=== PATIENT | female | born 1995 | race Caucasian/White ===

== ENCOUNTER 2017-05-12 22:37 | Emergency (ER) | payer OTHER ==
[2017-05-12 23:54] LABS: ABSOLUTE BASOPHILS # (AUTO) 0.1 10^3/uL (0.0-0.2); ABSOLUTE EOSINOPHILS # (AUTO) 0.3 10^3/uL (0.0-0.6); ABSOLUTE LYMPHOCYTES (AUTO) 3.8 10^3/uL (0.5-4.7); ABSOLUTE MONOCYTES (AUTO) 0.8 10^3/uL (0.1-1.4); ABSOLUTE NEUT (AUTO) 5.2 10^3/uL (1.7-8.2); BASOPHILS % (AUTO) 0.8 % (0-2); EOSINOPHILS % (AUTO) 2.9 % (0-6); HEMATOCRIT 40.4 % (36.0-47.0); HEMOGLOBIN 13.1 g/dL (12.0-15.5); HGB HCT DIFFERENCE -1.1; LYMPHOCYTES % (AUTO) 37.4 % (13-45); MEAN CORPUSCULAR HEMOGLOBIN 27.4 pg (27.0-33.4); MEAN CORPUSCULAR HGB CONC 32.4 g/dL (32.0-36.0); MEAN CORPUSCULAR VOLUME 85 fl (80-97); MONOCYTES % (AUTO) 8.3 % (3-13); RED BLOOD COUNT 4.78 10^6/uL (3.72-5.28); RED CELL DISTRIBUTION WIDTH 14.5 % (11.5-14.0); SEGMENTED NEUTROPHILS % (AUTO) 50.6 % (42-78); WHITE BLOOD COUNT 10.3 10^3/uL (4.0-10.5)
[2017-05-12 23:59] LABS: ALANINE AMINOTRANSFERASE 32 U/L (9-52); ALBUMIN 4.2 g/dL (3.5-5.0); ALKALINE PHOSPHATASE 81 U/L (38-126); ANION GAP 14 (5-19); ASPARTATE AMINO TRANSFERASE 17 U/L (14-36); BILIRUBIN,DIRECT 0.3 mg/dL (0.0-0.4); BILIRUBIN,TOTAL 0.3 mg/dL (0.2-1.3); BLOOD UREA NITROGEN 15 mg/dL (7-20); CALCIUM 9.5 mg/dL (8.4-10.2); CARBON DIOXIDE 24 mmol/L (22-30); CHLORIDE 105 mmol/L (98-107); CREATININE RESULT 0.78 mg/dL (0.52-1.25); GLUCOSE 128 mg/dL (75-110); LIPASE 83.2 U/L (23-300); POTASSIUM 4.1 mmol/L (3.6-5.0); SODIUM 142.6 mmol/L (137-145); TOTAL PROTEIN 7.5 g/dL (6.3-8.2)
[2017-05-13 02:04] LABS: AMORPHOUS SEDIMENT,URINE 1+ /HPF; APPEARANCE,URINE TURBID; BILIRUBIN,URINE NEGATIVE (NEGATIVE); GLUCOSE, URINE NEGATIVE (NEGATIVE); KETONES,URINE NEGATIVE (NEGATIVE); LEUKOCYTE ESTERASE,URINE NEGATIVE (NEGATIVE); NITRITE,URINE NEGATIVE (NEGATIVE); PROTEIN,URINE NEGATIVE (NEGATIVE); URINE SPECIFIC GRAVITY 1.018; UROBILINOGEN,URINE NEGATIVE mg/dL (<2.0)
--- NOTE | 2017-05-13 02:39 | ER Document Report ---
ED GI/ - General Chief Complaint: Abdominal Pain Stated Complaint: LEFT ABDOMINAL PAIN Time Seen by Provider: 05/13/17 01:22 Mode of Arrival: Ambulatory Information source: Patient Notes: 21-year-old female presents to ED for complaint of abdominal pain. States she went to her primary doctor she thought she could have gallbladder or appendicitis. States she has had pain on and off for 2 weeks. Denies any nausea vomiting or fever. Patient is on the left upper and lower abdomen. TRAVEL OUTSIDE OF THE [place] IN LAST 30 DAYS: No - HPI Patient complains to provider of: Abdominal pain. No: Dysuria, Vomiting Onset: Other - 2 weeks Timing/Duration: Intermittent Quality of pain: Sharp Severity at maximum: Moderate Severity in ED: Moderate Pain Level: 4 Location: LUQ, LLQ Vaginal bleeding (Compared to normal period): None Associated symptoms: denies: Nausea, Urinary hesitancy, Urinary frequency, Urinary retention, Urinary urgency, Vomiting Exacerbated by: Movement Relieved by: Denies Similar symptoms previously: Yes Recently seen / treated by doctor: Yes - Related Data Allergies/Adverse Reactions: sulfamethoxazole [From Septra] Allergy (Verified 05/12/17 22:47) trimethoprim [From Septra] Allergy (Verified 05/12/17 22:47) Past Medical History - General Information source: Patient - Social History Smoking Status: Never Smoker Cigarette use (# per day): No Chew tobacco use (# tins/day): No Smoking Education Provided: No Frequency of alcohol use: None Drug Abuse: None Occupation: [employer] Lives with: Family Family History: Other - adopted Patient has suicidal ideation: No Patient has homicidal ideation: No - Past Medical History Cardiac Medical History: Reports: Hx Hypercholesterolemia Pulmonary Medical History: Reports: None EENT Medical History: Reports: None Neurological Medical History: Reports: None Endocrine Medical History: Reports: Other - hypoglycemia Renal/ Medical History: Reports: None Malignancy Medical History: Reports: None GI Medical History: Reports: None Musculoskeltal Medical History: Reports Hx Musculoskeletal Trauma Skin Medical History: Reports None Psychiatric Medical History: Reports: None Traumatic Medical History: Reports: Hx Fractures - arm Infectious Medical History: Reports: None Surgical Hx: Negative Past Surgical History: Reports: None - Immunizations Immunizations up to date: Yes Hx Diphtheria, Pertussis, Tetanus Vaccination: Yes Review of Systems - Review of Systems Constitutional: No symptoms reported. denies: Fever, Recent illness EENT: No symptoms reported Cardiovascular: No symptoms reported Respiratory: No symptoms reported Gastrointestinal: Abdominal pain. denies: Diarrhea, Nausea, Vomiting Genitourinary: No symptoms reported Female Genitourinary: No symptoms reported Musculoskeletal: No symptoms reported Skin: No symptoms reported Hematologic/Lymphatic: No symptoms reported Neurological/Psychological: No symptoms reported -: Yes All other systems reviewed and negative Physical Exam - Vital signs Vitals: Temp Pulse Resp BP Pulse Ox 97.8 F 77 18 132/81 H 99 05/12/17 22:46 05/12/17 22:46 05/12/17 22:46 05/12/17 22:46 05/12/17 22:46 Interpretation: Normal - General General appearance: Appears well, Alert - HEENT Head: Normocephalic, Atraumatic Eyes: Normal Pupils: PERRL - Respiratory Respiratory status: No respiratory distress Chest status: Nontender Breath sounds: Normal Chest palpation: Normal - Cardiovascular Rhythm: Regular Heart sounds: Normal auscultation Murmur: No - Abdominal Inspection: Normal Distension: No distension Bowel sounds: Normal Tenderness: Tender - left upper and lower abdomen Organomegaly: No organomegaly - Back Back: Normal, Nontender - Extremities General upper extremity: Normal inspection, Nontender, Normal color, Normal ROM , Normal temperature General lower extremity: Normal inspection, Nontender, Normal color, Normal ROM , Normal temperature, Normal weight bearing. No: Meme's sign - Neurological Neuro grossly intact: Yes Cognition: Normal Orientation: AAOx4 [place] Coma Scale Eye Opening: Spontaneous [place] Coma Scale Verbal: Oriented [place] Coma Scale Motor: Obeys Commands [place] Coma Scale Total: 15 Speech: Normal Motor strength normal: LUE, RUE, LLE, RLE Sensory: Normal - Psychological Associated symptoms: Normal affect, Normal mood - Skin Skin Temperature: Warm Skin Moisture: Dry Skin Color: Normal Course - Re-evaluation Re-evalutation: 05/13/17 03:41 discussed labs with patient and family and encouraged to follow up with primary md. - Vital Signs Vital signs: Temp Pulse Resp BP Pulse Ox 97.8 F 78 18 116/74 99 05/12/17 22:46 05/13/17 02:40 05/13/17 02:40 05/13/17 02:40 05/13/17 02:40 - Laboratory Result Diagrams: 05/12/17 23:25 05/12/17 23:25 Laboratory results interpreted by me: 05/12/17 05/12/17 23:25 23:25 RDW 14.5 H Glucose 128 H Discharge - Discharge Clinical Impression: Abdominal pain Qualifiers: Abdominal location: upper abdomen, unspecified Qualified Code(s): R10.10 - Upper abdominal pain, unspecified Condition: Stable Disposition: HOME, SELF-CARE Additional Instructions: ABDOMINAL PAIN: There are many causes of abdominal pain. Pain can mean a serious problem requiring surgery (such as appendicitis). It can also be an innocent problem that goes away on its own (such as a viral infection). Often, time must pass to determine the cause of pain. The physician does not feel that hospitalization is necessary, at present. Things may change within the next 24 hours. Call the doctor or come back for re- examination if any problems occur, such as: (1) Pain that becomes more severe, steady, or becomes concentrated in one specific area. Also, pain that is more severe with movement or coughing. (2) Vomiting that persists or becomes more frequent. (3) Blood in the vomitus, urine, or bowel movements. Blood in the stool may have a tarry or black appearance. (4) Shaking chills or fever greater than 100 degrees F. (5) The abdomen becomes more distended or swollen. (6) Bowel movements cease. (7) Failure to improve as expected. NORMAL EXAM AND WORKUP: At this time, your examination and workup show no significant abnormality. No significant abnormal physical findings are noted. All laboratory, EKG, and imaging (x-ray, CT scans, ultrasound) studies that were ordered show no significant abnormality. Although your examination and all studies that were ordered showed no significant abnormal finding, there are no examinations and no studies that are 100% accurate. There is always the possibility that some abnormality could exist and not be detected with physical examination or within the limits and capabilities of laboratory and other studies. You should return or follow up as you were instructed on your visit today for further evaluation if your symptoms do not resolve. Given you a copy of your labs to follow-up with your primary doctor. FOLLOW-UP CARE: If you have been referred to a physician for follow-up care, call the physician s office for an appointment as you were instructed or within the next two days. If you experience worsening or a significant change in your symptoms, notify the physician immediately or return to the Emergency Department at any time for re-evaluation. Forms: Elevated Blood Pressure Referrals: OSCAR KIM MD [Primary Care Provider] - Follow up as needed
[2017-05-13 02:42] VITALS: BP 116/74
== END 2017-05-13 02:41 | disposition home or self-care (01) ==
LOC: ER 22:37
DX: R10.12 Left upper quadrant pain (principal); R10.32 Left lower quadrant pain; Z88.1 Allergy status to other antibiotic agents
CPT/HCPCS: 36415; 80053; 81001; 83690; 84703; 85025; 99284

== ENCOUNTER 2019-04-28 08:53 | Emergency (ER) | payer OTHER ==
[2019-04-28 08:59] VITALS: BP 118/79
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
== END 2019-04-28 09:54 | disposition home or self-care (01) ==
LOC: ER 08:53
DX: M79.601 Pain in right arm (principal); F17.200 Nicotine dependence, unspecified, uncomplicated; E78.00 Pure hypercholesterolemia, unspecified; E11.9 Type 2 diabetes mellitus without complications
CPT/HCPCS: 99283

== ENCOUNTER 2019-05-05 20:49 | Emergency (ER) | payer OTHER ==
[2019-05-05 21:27] VITALS: BP 114/78
--- NOTE | 2019-05-05 22:51 | ER Document Report ---
ED Medical Screen (RME) - General Chief Complaint: OB Problem (<20wks) Stated Complaint: POSSIBLE BLEEDING Time Seen by Provider: 05/05/19 22:48 Primary Care Provider: OSCAR KIM MD [Primary Care Provider] - Follow up as needed Notes: Patient is a 23-year-old G1, P0 female who presents emergency department with vaginal bleeding, headache, and lightheadedness. She has irregular periods and she does not know when her last actual menstrual cycle was. She has been on fertilization medication and has had a positive home test. She started having spotting around 1900 and then had some heavy bleeding shortly after. She states that she did have some cramping and felt like she almost was going to pass out. Since then, she states the bleeding has stopped. She does have a past medical history of PCOS and diabetes. She is followed by [facility] for her fertilization. She states that she is also nauseous. Exam: Tender mid lower abdomen. I have greeted and performed a rapid initial assessment of this patient. A comprehensive ED assessment and evaluation of the patient, analysis of test results and completion of medical decision making process will be conducted by an additional ED providers. TRAVEL OUTSIDE OF THE [place] IN LAST 30 DAYS: No - Related Data Allergies/Adverse Reactions: sulfamethoxazole [From ] Allergy (Verified 04/28/19 08:56) trimethoprim [From Julra] Allergy (Verified 04/28/19 08:56) Past Medical History - Past Medical History Cardiac Medical History: Reports: Hx Hypercholesterolemia Endocrine Medical History: Reports: Hx Diabetes Mellitus Type 2 Renal/ Medical History: Denies: Hx Peritoneal Dialysis Musculoskeltal Medical History: Reports Hx Musculoskeletal Trauma Traumatic Medical History: Reports: Hx Fractures - arm - Immunizations Immunizations up to date: Yes Hx Diphtheria, Pertussis, Tetanus Vaccination: Yes Physical Exam - Vital signs Vitals: Temp Pulse Resp BP Pulse Ox 98.0 F 81 18 114/78 98 05/05/19 21:25 05/05/19 21:25 05/05/19 21:25 05/05/19 21:25 05/05/19 21:25 Course - Vital Signs Vital signs: Temp Pulse Resp BP Pulse Ox 98.0 F 81 18 114/78 98 05/05/19 21:25 05/05/19 21:25 05/05/19 21:25 05/05/19 21:25 05/05/19 21:25 Doctor's Discharge - Discharge Referrals: OSCAR KIM MD [Primary Care Provider] - Follow up as needed
[2019-05-05 23:36] LABS: HEMATOCRIT 37.4 % (36.0-47.0); HEMOGLOBIN 12.3 g/dL (12.0-15.5); MEAN CORPUSCULAR HEMOGLOBIN 26.6 pg (27.0-33.4); MEAN CORPUSCULAR HGB CONC 32.8 g/dL (32.0-36.0); MEAN CORPUSCULAR VOLUME 81 fl (80-97); PLATELET COUNT 223 10^3/uL (150-450); RED BLOOD COUNT 4.61 10^6/uL (3.72-5.28); RED CELL DISTRIBUTION WIDTH 15.8 % (11.5-14.0); WHITE BLOOD COUNT 8.3 10^3/uL (4.0-10.5)
[2019-05-05 23:55] LABS: ABSOLUTE MONOCYTES # (MANUAL) 0.7 10^3/uL (0.1-1.4); ABSOLUTE NEUTROPHILS# (MANUAL) 2.5 10^3/uL (1.7-8.2); BAND NEUTROPHILS % (MANUAL) 1 % (3-5); BASOPHILS % (MANUAL) 0 % (0-2); EOSINOPHILS % (MANUAL) 2 % (0-6); LYMPHOCYTES % (MANUAL) 60 % (13-45); MONOCYTES % (MANUAL) 8 % (3-13); SEGMENTED NEUTROPHILS % (MAN) 29 % (42-78); TOTAL CELLS COUNTED 100
[2019-05-05 23:56] LABS: ANISOCYTOSIS SLIGHT; PLATELET COMMENT ADEQUATE
--- NOTE | 2019-05-06 01:06 | RADIOLOGY REPORT (SQ) ---
CLINICAL DATA: 23-year-old female with vaginal bleeding and irregular periods, history of using fertility medications, polycystic ovary syndrome, dysfunctional bleeding, positive home test, negative hCG TECHNICAL DATA: Ultrasound imaging of the pelvis was performed endovaginally on 05/06/2019 at 12:38 AM. COMPARISONS: None FINDINGS: The uterus is normal in size, shape and echogenicity and measures 8.0 x 4.6 x 4.0 cm. The endometrial complex measures 0.8 cm in thickness. There is no endometrial fluid. The cervix measures 3.3 cm in length. Cervical nabothian cysts are noted. The right ovary measures 4.1 x 1.9 x 2.3 cm. The right ovary is normal in size, shape and echogenicity. Doppler imaging demonstrates normal pulsed and color Doppler signal. The left ovary measures 3.2 x 1.7 x 2.4 cm. The left ovary contains normal follicles. Doppler imaging demonstrates normal pulsed and color Doppler signal. There is no free fluid in the pelvis. The technologist noted that the examination was technically limited due to the patient's overall body habitus. IMPRESSION: Grossly normal pelvic ultrasound. No focal abnormalities are identified.
--- NOTE | 2019-05-06 01:28 | ER Document Report ---
ED General - General Chief Complaint: OB Problem (<20wks) Stated Complaint: POSSIBLE BLEEDING Time Seen by Provider: 05/05/19 22:48 Primary Care Provider: OSCAR KIM MD [Primary Care Provider] - Follow up as needed Mode of Arrival: Ambulatory Information source: Patient, [facility] Records Notes: Patient is a 23-year-old G1, P0 female who presents emergency department with vaginal bleeding, headache, and lightheadedness. She has irregular periods and she does not know when her last actual menstrual cycle was. She has been on fertilization medication (Clomid) and has had a positive home test. She started having spotting around 1900 and then had some heavy bleeding shortly after. She states that she did have some cramping and felt like she almost was going to pass out. Since then, she states the bleeding has stopped. She does have a past medical history of PCOS and pre-diabetes (not currently on medications). She is followed by [facility] for her fertilization. She states that she is also nauseous. Upon my exam patient is eating [employer]. TRAVEL OUTSIDE OF THE [place] IN LAST 30 DAYS: No - HPI Onset: This morning Onset/Duration: Gradual, Gone Quality of pain: Achy Severity: Mild Associated symptoms: Headache, Nausea. denies: Diarrhea, Fever, Vomiting Exacerbated by: Denies Relieved by: Denies Similar symptoms previously: No Recently seen / treated by doctor: No - Related Data Allergies/Adverse Reactions: sulfamethoxazole [From ] Allergy (Verified 04/28/19 08:56) trimethoprim [From ] Allergy (Verified 04/28/19 08:56) Past Medical History - General Information source: Patient - Social History Smoking Status: Unknown if Ever Smoked Frequency of alcohol use: None Drug Abuse: None Lives with: Spouse/Significant other Family History: Other - adopted Patient has suicidal ideation: No Patient has homicidal ideation: No - Past Medical History Cardiac Medical History: Reports: Hx Hypercholesterolemia Endocrine Medical History: Reports: Hx Diabetes Mellitus Type 2 Renal/ Medical History: Denies: Hx Peritoneal Dialysis Musculoskeletal Medical History: Reports Hx Musculoskeletal Trauma Traumatic Medical History: Reports: Hx Fractures - arm - Immunizations Immunizations up to date: Yes Hx Diphtheria, Pertussis, Tetanus Vaccination: Yes Review of Systems - Review of Systems Notes: REVIEW OF SYSTEMS: CONSTITUTIONAL : Denies fever, chills, or sweats. Denies recent illness. Denies weight loss, recent hospitalizations. EENT: Denies visual changes, eye pain. Denies sore throat, oral lesions, difficulty swallowing. CARDIOVASCULAR: Denies chest pain. Denies palpitations. Denies lower extremity edema. RESPIRATORY: Denies cough. Denies shortness of breath, wheezing. GASTROINTESTINAL: Denies abdominal pain or distention. Denies vomiting, or diarrhea. Denies blood in vomitus, stools, or per rectum. Denies black, tarry stools. Denies constipation. GENITOURINARY: Denies difficulty urinating, painful urination, frequency, blood in urine, or vaginal discharge. MUSCULOSKELETAL: Denies back or neck pain or stiffness. Denies joint pain or swelling. SKIN: Denies rash, lesions or sores. HEMATOLOGIC : Denies easy bruising or bleeding. LYMPHATIC: Denies swollen glands. NEUROLOGICAL: Denies confusion or altered mental status. Denies loss of consciousness. + dizziness or lightheadedness. Denies headache. Denies weakness or paralysis. Denies problems difficulty with ambulation, slurred speech. Denies sensory loss, numbness, or tingling. Denies seizures. PSYCHIATRIC: Denies anxiety or stress. Denies depression, suicidal ideation, or homicidal ideation. Denies visual or auditory hallucinations. Physical Exam - Vital signs Vitals: Temp Pulse Resp BP Pulse Ox 98.0 F 81 18 114/78 98 05/05/19 21:25 05/05/19 21:25 05/05/19 21:25 05/05/19 21:25 05/05/19 21:25 - Notes Notes: PHYSICAL EXAMINATION: GENERAL: Well-appearing, well-nourished and in no acute distress. HEAD: Atraumatic, normocephalic. EYES: Pupils equal round and reactive to light, extraocular movements intact, conjunctiva are normal. ENT: Nares patent, oropharynx clear without exudates. Moist mucous membranes. NECK: Normal range of motion, supple without lymphadenopathy LUNGS: Breath sounds clear to auscultation bilaterally and equal. No wheezes rales or rhonchi. HEART: Regular rate and rhythm without murmurs ABDOMEN: Soft, nontender, nondistended abdomen. No guarding, no rebound. No masses appreciated. Female : deferred Musculoskeletal: Normal range of motion, no pitting or edema. No cyanosis. NEUROLOGICAL: Cranial nerves grossly intact. Normal speech, normal gait. Normal sensory, motor exams PSYCH: Normal mood, normal affect. SKIN: Warm, Dry, normal turgor, no rashes or lesions noted. Course - Re-evaluation Re-evalutation: 05/06/19 23:18 Laboratory 05/05/19 05/05/19 05/05/19 23:15 23:15 23:15 WBC 8.3 RBC 4.61 Hgb 12.3 Hct 37.4 MCV 81 MCH 26.6 L MCHC 32.8 RDW 15.8 H Plt Count 223 Total Counted 100 Seg Neutrophils % Not Reportable Seg Neuts % (Manual) 29 L Band Neutrophils % 1 L Lymphocytes % Not Reportable Lymphocytes % (Manual) 60 H Monocytes % Not Reportable Monocytes % (Manual) 8 Eosinophils % Not Reportable Eosinophils % (Manual) 2 Basophils % Not Reportable Basophils % (Manual) 0 Absolute Neutrophils Not Reportable Abs Neuts (Manual) 2.5 Absolute Lymphocytes Not Reportable Abs Lymphs (Manual) 5.0 H Absolute Monocytes Not Reportable Abs Monocytes (Manual) 0.7 Absolute Eosinophils Not Reportable Absolute Eos (Manual) 0.2 Absolute Basophils Not Reportable Abs Basophils (Manual) 0.0 Platelet Comment ADEQUATE Anisocytosis SLIGHT Beta HCG, Quant < 2.39 Total Beta HCG NEGATIVE Blood Type A POSITIVE Rhogam Indicated RHOGAM NOT INDICATED Transvaginal US 05/05/19 22:51 IMPRESSION: Grossly normal pelvic ultrasound. No focal abnormalities are identified. Temp Pulse Resp BP Pulse Ox 98.0 F 81 18 114/78 98 05/05/19 21:25 05/05/19 21:25 05/05/19 21:25 05/05/19 21:25 05/05/19 21:25 Transvaginal US 05/05/19 22:51 IMPRESSION: Grossly normal pelvic ultrasound. No focal abnormalities are identified. 05/06/19 23:19 Patient is a 23-year-old G1, P0 female who presents emergency department with vaginal bleeding, headache, and lightheadedness. She has irregular periods and she does not know when her last actual menstrual cycle was. She has been on fertilization medication (Clomid) and has had a positive home test. She started having spotting around 1900 and then had some heavy bleeding shortly after. She states that she did have some cramping and felt like she almost was going to pass out. Since then, she states the bleeding has stopped. Vital signs are reviewed and within normal limits. Patient does not appear toxic, dehydrated or in any acute distress. She is eating sounds upon my exam. The first words out of the patient's mouth were "please tell me i advised patient that had a miscarriage". There is no evidence of . She has a normal transvaginal ultrasound and her hCG is negative. Advised to follow-up with her CLEAN OUT DRILLER HELPER. Patient was evaluated and treated as appropriate for the patient's presenting symptoms and complaint, with consideration of any critical or life threatening conditions that may be associated with their obtained history and exam as noted above. All results were discussed with patient and Her significant other was at the bedside. Patient provided the opportunity to ask questions, and express concerns. Patient was educated on treatments based on their presumed diagnosis as noted above. At this time we will discharge the patient with return precautions and follow-up recommendations. Verbal discharge instructions given a the bedside. Medication warnings reviewed. Patient is in agreement with this plan and has verbalized understanding of return precautions. After careful consideration I feel that that patient can be safely discharged from the emergency department, they were advised to followup with a primary care physician in 2-3 days. Dictation on this chart was performed using voice recognition software and may result in unintended grammatical, spelling, syntax or errors. Her significant other was at the bedside. - Vital Signs Vital signs: Temp Pulse Resp BP Pulse Ox 98.0 F 81 18 114/78 98 05/05/19 21:25 05/05/19 21:25 05/05/19 21:25 05/05/19 21:25 05/05/19 21:25 - Laboratory Result Diagrams: 05/05/19 23:15 Laboratory results interpreted by me: 05/05/19 23:15 MCH 26.6 L RDW 15.8 H Seg Neuts % (Manual) 29 L Band Neutrophils % 1 L Lymphocytes % (Manual) 60 H Abs Lymphs (Manual) 5.0 H - Diagnostic Test Radiology reviewed: Image reviewed, Reports reviewed Discharge - Discharge Clinical Impression: Vaginal bleeding Condition: Good Disposition: HOME, SELF-CARE Instructions: Dysfunctional Uterine Bleeding ([facility]), Vaginal Bleeding ([facility]) Additional Instructions: You are not . Your ultrasound is completely normal. Please follow-up with your CLEAN OUT DRILLER HELPER as needed. Referrals: OSCAR KIM MD [Primary Care Provider] - Follow up as needed
== END 2019-05-06 01:58 | disposition home or self-care (01) ==
LOC: ER 20:49
DX: O03.9 Complete or unspecified spontaneous abortion without complication (principal); O24.911 Unspecified diabetes mellitus in pregnancy, first trimester; O26.891 Other specified pregnancy related conditions, first trimester; R51 Headache; R42 Dizziness and giddiness; R11.0 Nausea; Z3A.00 Weeks of gestation of pregnancy not specified
CPT/HCPCS: 36415; 76830; 84702; 85025; 86900; 86901; 93976; 99284

== ENCOUNTER → 2020-05-16 | Outpatient (CLI) | payer OTHER ==
[2020-05-16 13:00] LABS: CRYPTOSPORIDIUM PARVUM AG NEGATIVE (NEGATIVE); GIARDIA LAMBLIA AG NEGATIVE (NEGATIVE)
== END ==
LOC: OD 11:13
PROVIDERS: ATTEND Internal Medicine
DX: R19.7 Diarrhea, unspecified (principal)
CPT/HCPCS: 36415; 86403; 87045; 87177; 87205; 87329

== ENCOUNTER 2020-09-20 12:04 | Day surgery (SDC) | payer OTHER ==
[2020-09-17 10:24] LABS: HEMOGLOBIN 12.4 g/dL (12.0-15.5); MEAN CORPUSCULAR HEMOGLOBIN 27.8 pg (27.0-33.4); MEAN CORPUSCULAR HGB CONC 33.4 g/dL (32.0-36.0); MEAN CORPUSCULAR VOLUME 83 fl (80-97); PLATELET COUNT 294 10^3/uL (150-450); RED BLOOD COUNT 4.45 10^6/uL (3.72-5.28); RED CELL DISTRIBUTION WIDTH 13.4 % (11.5-14.0); WHITE BLOOD COUNT 6.1 10^3/uL (4.0-10.5)
[2020-09-17 10:30] LABS: APPEARANCE,URINE CLEAR; BILIRUBIN,URINE NEGATIVE (NEGATIVE); COLOR,URINE YELLOW; GLUCOSE, URINE NEGATIVE (NEGATIVE); KETONES,URINE NEGATIVE (NEGATIVE); LEUKOCYTE ESTERASE,URINE NEGATIVE (NEGATIVE); NITRITE,URINE NEGATIVE (NEGATIVE); PROTEIN,URINE NEGATIVE (NEGATIVE); URINE SPECIFIC GRAVITY 1.014; UROBILINOGEN,URINE NEGATIVE mg/dL (<2.0)
[~2020-09-20 12:04] MED LIST: LACTATED RINGERS 1000 ML IV PRN; LIDOCAINE 0.5% INJ-PF (5 MG/ML) 50 ML SDV SUBCUT PRN
[2020-09-20] MEDS ORDERED: DEXAMETHASONE SOD PHOSPHATE INJ 4 MG/1 ML VIAL ONE (12:32)
[2020-09-20] MEDS ORDERED: LIDOCAINE 2% INJ-PF (20 MG/ML) 2 ML AMPUL ONE (12:32)
[2020-09-20] MEDS ORDERED: NEOSTIGMINE METHYLSULFATE 10 MG/10 ML VIAL ONE (12:32)
[2020-09-20] MEDS ORDERED: ROCURONIUM BROMIDE INJ 50 MG/5 ML VIAL IV ONE (12:32)
[2020-09-20] MEDS ORDERED: GLYCOPYRROLATE 1 MG/5 ML VIAL ONE (12:32)
[2020-09-20] MEDS ORDERED: KETOROLAC TROMETHAMINE 60 MG/2 ML SDV ONE (12:32)
[2020-09-20] MEDS ORDERED: ONDANSETRON HCL INJ/PF 4 MG/2 ML SDV ONE (12:32)
[2020-09-20] MEDS ORDERED: ACETAMINOPHEN 325 MG TABLET ONE (13:44)
[2020-09-20] MEDS ORDERED: SCOPOLAMINE HYDROBROMIDE 1.5 MG PATCH.TD72 ONE (13:45)
[2020-09-20] MEDS ORDERED: FENTANYL CITRATE INJ/PF 100 MCG/2 ML AMPUL ONE ×2 (14:00→15:57)
[2020-09-20] MEDS ORDERED: MIDAZOLAM 2 MG/2 ML INJ ONE (14:00)
[2020-09-20] MEDS ORDERED: PROPOFOL INJ 200 MG/20 ML VIAL IV ONE (14:00)
[2020-09-20] MEDS ORDERED: CEFAZOLIN 2 GM/D5W RTU 2 GM/50 ML RTUPB IV ONE ×2 (14:16→16:00)
[2020-09-20] MEDS ORDERED: MEPERIDINE HCL/PF INJ 25 MG/1 ML DISP.SYRIN IV PRN (14:31)
[2020-09-20] MEDS ORDERED: PROMETHAZINE HCL INJ 25 MG/1 ML VIAL IV PRN ×2 (14:31)
[2020-09-20] MEDS ORDERED: FENTANYL CITRATE INJ/PF 100 MCG/2 ML AMPUL IV PRN ×3 (14:31)
[2020-09-20] MEDS ORDERED: DIPHENHYDRAMINE HCL 50 MG/ML VIAL IV PRN (14:31)
[2020-09-20] MEDS ORDERED: ACETAMINOPHEN 325 MG TABLET PO ONE (15:15)
[2020-09-20] MEDS ORDERED: SCOPOLAMINE HYDROBROMIDE 1.5 MG PATCH.TD72 TD ONE (15:15)
[2020-09-20] MEDS ORDERED: OXYCODONE-ACETAMINOPHEN 5-325 MG TABLET PO PRN ×2 (15:26)
[2020-09-20] MEDS ORDERED: RINGERS SOLUTION,LACTATED 1,000 ML IV PRN (15:26)
[2020-09-20] MEDS ORDERED: KETOROLAC TROMETHAMINE INJ/PF 30 MG/1 ML SDV IV PRN (15:26)
--- NOTE | 2020-09-20 15:36 | Operative Report ---
Operative Report DATE OF SURGERY: 09/20/20 PREOPERATIVE DIAGNOSIS: Abnormal uterine bleeding, polycystic ovarian syndrome, pelvic pain, infertility POSTOPERATIVE DIAGNOSIS: Same OPERATION: Diagnostic laparoscopy with ovarian drilling, hysteroscope D&C SURGEON: MYRIAM HERNANDEZ 1ST FORM SETTER: REED CEBALLOS ANESTHESIA: GA TISSUE REMOVED OR ALTERED: Endometrial curettings COMPLICATIONS: None ESTIMATED BLOOD LOSS: 50 cc INTRAOPERATIVE FINDINGS: Normal pelvic cavity with enlarged polycystic ovaries, uterus normal in appearance, no evidence in endometriosis, bilateral fallopian tubes slightly dilated in the midline towards the end fimbriated end. Otherwise fallopian tubes look completely healthy. Nulliparous appearing cervix, proliferative endometrium with a benign-appearing endometrial polyp PROCEDURE: Patient was taken the operating room prepared and draped in normal sterile fashion a dorsolithotomy position in [facility]. Under sterile conditions and In-N-Out cath was performed of approximately 200 cc of clear urine, sterile speculum was placed into the vagina and the cervix was grasped on the anterior lip with a single-tooth tenaculum. A clamp was then placed to the cervix for uterine manipulation. Labs were changed and attention was turned to the upper portion of the case. A skin incision was placed approximately 1 cm above the umbilicus, through this incision a 5 mm trocar was inserted under using direct visualization with the laparoscopic camera. Needle cavity placement was confirmed when bowel was noted through through the visualization. The camera was removed and the abdomen was then inflated with approximately 2 L of CO2 gas was replaced through the trocar and the patient was placed in Trendelenburg with the above findings noted. Another 5 mm trocar was placed in the left lower quadrant and in the lower right lower quadrant approximately 10 cm on either side of the umbilicus. Swept away with a atraumatic grasper. And the ovaries were thoroughly inspected. Pictures were taken. Anterior cul-de-sac was inspected and found to be free of pathology as well as the posterior cul-de-sac. Small amount of dark free fluid in the abdomen otherwise no indication of pathology. The right ovary was then grasped with an atraumatic grasper and elevated and brought to the midline. Optic scissors were introduced with heat applied and approximately 10-12's were placed on the ovary for the ovarian drilling at a depth of approximately 1 to 2 mm. The left ovary was then treated in a similar fashion. The peritoneal cavity was once again his hips inspected and there is no other findings of note. And this portion of the case was concluded with removal of the instruments and removal of the trochars at the abdomen. Was deflated of the gas and the 3 incisions were closed using 4-0 Vicryl at the skin. We then proceeded with the vaginal portion of the case and a sterile speculum was once again placed in the vagina and the [place] clamp was removed a single-tooth tenaculum was placed at the anterior lip of the cervix and uterine sound was introduced and the uterus sounded to approximately 8 cm. the cervix was then dilated to accommodate a 5 mm hysteroscope, this was accomplished without difficulty and the hysteroscope was introduced. . The hysteroscope was advanced and the endometrial cavity was thoroughly inspected and there was found to be a significant endometrial polyp that was noted in the endometrial. Other pathology was noted other than some proliferative endometrium and the polyp. The hysteroscope was then removed and a Kevorkian curette was placed through the cervix and to the fundus. A good scraping was taken of the endometrium, Ridge stone manipulators were then placed through the cervix and the rest of the polyp was able to be dissected more easily with this. Once I felt the endometrial sample was adequate this the case was concluded. Minutes were removed the tenaculum site was found to be oozing slightly but otherwise hemostatic. The case was concluded and sponge lap and needle counts were correct x2 patient was taken the PACU in stable condition.
--- NOTE | 2020-09-20 15:39 | PDOC DISCHARGE SUMMARY ---
Impression - Admit/DC Date/PCP Admission Date/Primary Care Provider: OSCAR KIM MD Discharge Date: 09/20/20 - Discharge Diagnosis (1) Abnormal uterine bleeding Is this a current diagnosis for this admission?: Yes (2) Pelvic pain Is this a current diagnosis for this admission?: Yes (3) Polycystic ovarian syndrome Is this a current diagnosis for this admission?: Yes (4) Infertility associated with anovulation Is this a current diagnosis for this admission?: Yes - Assessment Summary: patient underwent nonstick laparoscopy and hysteroscopy with D&C without any complications. She is now being discharged home - Additional Information Resuscitation Status: Full Code Discharge Diet: As Tolerated Discharge Activity: Activity As Tolerated, Pelvic Rest Referrals: MYRIAM HERNANDEZ MD [ACTIVE STAFF] - Prescriptions: Oxycodone HCl/Acetaminophen [Percocet 5-325 mg Tablet] 1 tab PO Q4HP PRN #20 tablet PRN Reason: Home Medications: Lisdexamfetamine Dimesylate [Vyvanse] 20 mg PO DAILY 09/19/20 Loratadine [Claritin 10 mg Tablet] 10 mg PO DAILY 09/19/20 Medroxyprogesterone Acet [Provera 10 Mg Tablet] 10 mg PO DAILY 09/19/20 Ondansetron HCl [Zofran] 8 mg PO PRN PRN 09/19/20 Semaglutide [Ozempic] 0.25 mg SQ 09/19/20 Sertraline HCl [Zoloft 50 mg Tablet] 100 mg PO DAILY 09/19/20 Tranexamic Acid [Lysteda] 650 mg PO TID 09/19/20 Oxycodone HCl/Acetaminophen [Percocet 5-325 mg Tablet] 1 tab PO Q4HP PRN #20 tablet 09/20/20 History of Present Illiness History of Present Illness: REGIS PEOPLES is a 24 year old female Physical Exam - Physical Exam Vital Signs: Temp Pulse Resp BP Pulse Ox 98 F 60 16 122/72 100 09/20/20 13:45 09/20/20 13:45 09/20/20 13:45 09/20/20 13:45 09/20/20 13:45 Intake & Output 09/19/20 09/20/20 09/21/20 06:59 06:59 06:59 Weight 98.88 kg Results Laboratory Results: WBC 6.1 10^3/uL (4.0-10.5) 09/17/20 09:35 RBC 4.45 10^6/uL (3.72-5.28) 09/17/20 09:35 Hgb 12.4 g/dL (12.0-15.5) 09/17/20 09:35 Hct 37.0 % (36.0-47.0) 09/17/20 09:35 MCV 83 fl (80-97) 09/17/20 09:35 MCH 27.8 pg (27.0-33.4) 09/17/20 09:35 MCHC 33.4 g/dL (32.0-36.0) 09/17/20 09:35 RDW 13.4 % (11.5-14.0) 09/17/20 09:35 Plt Count 294 10^3/uL (150-450) 09/17/20 09:35 POC Glucose 91 mg/dL (70-110) 09/20/20 12:47 Urine Color YELLOW 09/17/20 09:40 Urine Appearance CLEAR 09/17/20 09:40 Urine pH 7.0 (5.0-9.0) 09/17/20 09:40 Ur Specific [place] 1.014 09/17/20 09:40 Urine Protein NEGATIVE mg/dL (NEGATIVE) 09/17/20 09:40 Urine Glucose (UA) NEGATIVE mg/dL (NEGATIVE) 09/17/20 09:40 Urine Ketones NEGATIVE mg/dL (NEGATIVE) 09/17/20 09:40 Urine Blood NEGATIVE (NEGATIVE) 09/17/20 09:40 Urine Nitrite NEGATIVE (NEGATIVE) 09/17/20 09:40 Urine Bilirubin NEGATIVE (NEGATIVE) 09/17/20 09:40 Urine Urobilinogen NEGATIVE mg/dL (<2.0) 09/17/20 09:40 Ur Leukocyte Esterase NEGATIVE (NEGATIVE) 09/17/20 09:40 Urine WBC (Auto) 1 /HPF 09/17/20 09:40 Urine RBC (Auto) 0 /HPF 09/17/20 09:40 Squamous Epi Cells Auto 1 /HPF 09/17/20 09:40 Urine Mucus (Auto) RARE /LPF 09/17/20 09:40 Urine Ascorbic Acid NEGATIVE (NEGATIVE) 09/17/20 09:40 Urine HCG, Qual NEGATIVE (NEGATIVE) 09/20/20 12:10 COVID-19 Source See comment 09/17/20 09:35 COVID-19 (ANGELA) Not Detected (Not Detect) 09/17/20 09:35 Stroke Is this a Stroke Patient?: No Acute Heart Failure Is this a Heart Failure Patient?: No
[2020-09-20] MEDS ORDERED: MEPERIDINE HCL/PF INJ 25 MG/1 ML DISP.SYRIN ONE (15:43)
[2020-09-20] MEDS ORDERED: MEPERIDINE HCL/PF INJ 25 MG/1 ML DISP.SYRIN IV ONE (15:46)
[2020-09-20] MEDS ORDERED: FENTANYL CITRATE INJ/PF 100 MCG/2 ML AMPUL IV ONE (15:59)
[2020-09-20 18:52] VITALS: BP 123/77
== END 2020-09-20 18:28 | disposition home or self-care (01) ==
LOC: OROUT 12:04
PROVIDERS: ATTEND Obstetrics & Gynecology
DX: N93.9 Abnormal uterine and vaginal bleeding, unspecified (principal); R10.2 Pelvic and perineal pain; N97.0 Female infertility associated with anovulation; E28.2 Polycystic ovarian syndrome; N92.6 Irregular menstruation, unspecified; N84.0 Polyp of corpus uteri; Z79.899 Other long term (current) drug therapy; E11.9 Type 2 diabetes mellitus without complications; E66.9 Obesity, unspecified; F32.9 Major depressive disorder, single episode, unspecified; Z03.818 Encounter for observation for suspected exposure to other biological agents ruled out
CPT/HCPCS: 36415; 82962; 85027; 81025; 81001; 88305 ×2; 00840; 58558; 58999; U0003; J2250; J3490 ×3; J1100; J1885; J3010; J2175; J2710; J2405; J2704; J0690; C9803; 840; 87635

== ENCOUNTER 2020-09-23 12:07 | Emergency (ER) | payer OTHER ==
--- NOTE | 2020-09-23 12:38 | ER Document Report ---
ED Medical Screen (RME) - General Chief Complaint: Post Surgical Pain Stated Complaint: WOUND CHECK/SOB/CHEST TIGHTNESS/FEVISH Time Seen by Provider: 09/23/20 12:35 Primary Care Provider: OSCAR KIM MD [Primary Care Provider] - Follow up as needed Mode of Arrival: Wheelchair Information source: Patient Notes: 24-year-old female presented to ED for complaint of abdominal pain surgical incision site pain and chest tightness postop. She states she had a laparoscopy done on September 20 to drill her ovaries and to find out why she was not having a menstrual cycle. She states it was done by Dr. Valenzuela at this hospital she also had a gallbladder surgery on 18 August in [place]. She states that today when she took her dressing off of her wounds the glue came off with the dressing and now the one on her lower right abdomen is draining first blood and now fluid. She states it feels like it is infected inside. Her vital signs are stable there is no redness or formation noted at this time. I will get blood urine and have one of the providers reevaluate her and possibly follow-up with the surgeon. She states they gave her Percocet postop and it makes her feel like she is flying she would prefer oxycodone. I did explain to her that with the same medication. I have greeted and performed a rapid initial assessment of this patient. A comprehensive ED assessment and evaluation of the patient, analysis of test results and completion of medical decision making process will be conducted by an additional ED providers. TRAVEL OUTSIDE OF THE [place] IN LAST 30 DAYS: No - Related Data Allergies/Adverse Reactions: latex Allergy (Verified 09/20/20 15:16) Hives sulfamethoxazole [From Septra] Allergy (Verified 09/20/20 15:16) Hives trimethoprim [From Septra] Allergy (Verified 09/20/20 15:16) Hives ibuprofen Adverse Reaction (Verified 09/20/20 15:17) DEHYDRATION Penicillins Adverse Reaction (Verified 09/20/20 15:16) SEVERE NAUSEA Past Medical History - Past Medical History Cardiac Medical History: Reports: Hx Hypercholesterolemia Denies: Hx Coronary Artery Disease, Hx Heart Attack, Hx Hypertension Pulmonary Medical History: Denies: Hx Asthma, Hx Bronchitis, Hx COPD, Hx Pneumonia Neurological Medical History: Denies: Hx Cerebrovascular Accident, Hx Seizures Endocrine Medical History: Reports: Hx Diabetes Mellitus Type 2 Renal/ Medical History: Denies: Hx Peritoneal Dialysis Musculoskeltal Medical History: Denies Hx Arthritis, Reports Hx Musculoskeletal Trauma Traumatic Medical History: Reports: Hx Fractures - arm - Immunizations Immunizations up to date: Yes Hx Diphtheria, Pertussis, Tetanus Vaccination: Yes Physical Exam - Vital signs Vitals: Temp Pulse Resp BP Pulse Ox 98.3 F 79 20 112/78 99 09/23/20 12:37 09/23/20 12:37 09/23/20 12:37 09/23/20 12:37 09/23/20 12:37 Course - Vital Signs Vital signs: Temp Pulse Resp BP Pulse Ox 98.3 F 79 20 112/78 99 09/23/20 12:37 09/23/20 12:37 09/23/20 12:37 09/23/20 12:37 09/23/20 12:37 Doctor's Discharge - Discharge Referrals: OSCAR KIM MD [Primary Care Provider] - Follow up as needed
[2020-09-23 13:36] LABS: ABSOLUTE EOSINOPHILS # (AUTO) 0.1 10^3/uL (0.0-0.6); ABSOLUTE LYMPHOCYTES (AUTO) 2.5 10^3/uL (0.5-4.7); ABSOLUTE MONOCYTES (AUTO) 0.7 10^3/uL (0.1-1.4); ABSOLUTE NEUT (AUTO) 4.5 10^3/uL (1.7-8.2); BASOPHILS % (AUTO) 0.4 % (0-2); EOSINOPHILS % (AUTO) 1.4 % (0-6); HEMATOCRIT 35.8 % (36.0-47.0); HEMOGLOBIN 12.3 g/dL (12.0-15.5); LYMPHOCYTES % (AUTO) 31.8 % (13-45); MEAN CORPUSCULAR HGB CONC 34.3 g/dL (32.0-36.0); MEAN CORPUSCULAR VOLUME 82 fl (80-97); MONOCYTES % (AUTO) 9.2 % (3-13); PLATELET COUNT 322 10^3/uL (150-450); RED BLOOD COUNT 4.38 10^6/uL (3.72-5.28); RED CELL DISTRIBUTION WIDTH 13.5 % (11.5-14.0); SEGMENTED NEUTROPHILS % (AUTO) 57.2 % (42-78); TOTAL CELLS COUNTED % (AUTO) 100 %; WHITE BLOOD COUNT 7.8 10^3/uL (4.0-10.5)
[2020-09-23 13:42] LABS: ALBUMIN 4.1 g/dL (3.5-5.0); ALKALINE PHOSPHATASE 138 U/L (38-126); ANION GAP 9 (5-19); ASPARTATE AMINO TRANSFERASE 208 U/L (14-36); BILIRUBIN,DIRECT 0.3 mg/dL (0.0-0.4); BILIRUBIN,TOTAL 0.9 mg/dL (0.2-1.3); BLOOD UREA NITROGEN 10 mg/dL (7-20); CALCIUM 9.5 mg/dL (8.4-10.2); CARBON DIOXIDE 25 mmol/L (22-30); CHLORIDE 105 mmol/L (98-107); GLUCOSE 104 mg/dL (75-110); TOTAL PROTEIN 6.7 g/dL (6.3-8.2)
[2020-09-23 13:45] LABS: POTASSIUM 4.4 mmol/L (3.6-5.0)
--- NOTE | 2020-09-23 14:22 | EKG REPORT ---
SEVERITY:- NORMAL ECG - SINUS RHYTHM : Confirmed by: Uriah Lala MD 23-Sep-2020 14:21:48
[2020-09-23 14:26] LABS: APPEARANCE,URINE CLOUDY; BILIRUBIN,URINE NEGATIVE (NEGATIVE); COLOR,URINE RED; GLUCOSE, URINE NEGATIVE (NEGATIVE); KETONES,URINE NEGATIVE (NEGATIVE); LEUKOCYTE ESTERASE,URINE TRACE (NEGATIVE); NITRITE,URINE NEGATIVE (NEGATIVE); PROTEIN,URINE 100 mg/dL (NEGATIVE); URINE SPECIFIC GRAVITY 1.025
--- NOTE | 2020-09-23 16:27 | RADIOLOGY REPORT (SQ) ---
EXAM DESCRIPTION: CT ABD/PELVIS WITH IV ONLY IMAGES COMPLETED DATE/TIME: 09/23/2020 3:06 pm REASON FOR STUDY: Postoperative abdominal pain. COMPARISON: None. TECHNIQUE: CT scan of the abdomen and pelvis performed using helical scanning technique with dynamic intravenous contrast injection. No oral contrast. Images reviewed with lung, soft tissue, and bone windows. Reconstructed coronal and sagittal MPR images reviewed. Delayed images for evaluation of the urinary system also acquired. All images stored on PACS. All CT scanners at this facility use dose modulation, iterative reconstruction, and/or weight based d osing when appropriate to reduce radiation dose to as low as reasonably achievable (ALARA). [facility]: Dose Right [facility]: CareDose [facility]: Dose Right [facility]: Teradose 4D [facility]: SalesPortal CONTRAST TYPE AND DOSE: contrast/concentration: Isovue 350.00 mmol/ml; Total Contrast Delivered: 100 .0 ml; Total Saline Delivered: 57.0 ml RENAL FUNCTION: GFR > 60. RADIATION DOSE: CT Rad equipment meets quality standard of care and radiation dose reduction techniq ues were employed. CTDIvol: 16.3 - 19.9 mGy. DLP: 1992 mGy-cm.. LIMITATIONS: None. FINDINGS: LOWER CHEST: No significant findings. No nodules or infiltrates. LIVER: Liver has normal size and contour. Mild diffuse hepatic steatosis. No focal hepatic mass. H epatic and portal veins are patent. No biliary ductal dilation. SPLEEN: Normal size. No focal lesions. PANCREAS: No masses. No significant calcifications. No adjacent inflammation or peripancreatic fluid collections. Pancreatic duct not dilated. GALLBLADDER: Surgically absent. ADRENAL GLANDS: No significant masses or asymmetry. RIGHT KIDNEY AND URETER: No solid masses. No significant calcifications. No hydronephrosis or hyd roureter. LEFT KIDNEY AND URETER: No solid masses. No significant calcifications. No hydronephrosis or hydr oureter. AORTA AND VESSELS: No aneurysm. No dissection. Renal arteries, SMA, celiac without stenosis. RETROPERITONEUM: No retroperitoneal adenopathy, hemorrhage or masses. BOWEL AND PERITONEAL CAVITY: Trace free fluid in the pelvis. No pneumoperitoneum. No bowel obstruct ion or bowel wall thickening. No significant inflammatory change. APPENDIX: Not visualized. PELVIS: Uterus and ovaries have normal size. No adnexal mass. Trace free fluid in the pelvic cul-de -sac. No pelvic adenopathy. ABDOMINAL WALL: No masses. No hernias. BONES: No significant or acute findings. OTHER: No other significant finding. IMPRESSION: Trace free fluid in the pelvis. This is within normal limits for physiologic fluid or m ay be reactive secondary to recent procedure? . No acute abnormality. TECHNICAL DOCUMENTATION: JOB ID: [id number] Quality ID # [id number]: Final reports with documentation of one or more dose reduction techniques (e.g., Au tomated exposure control, adjustment of the mA and/or kV according to patient size, use of iterative reconstruction technique) 2010 [employer]- All Rights Reserved Reading location - IP/workstation name: [email or web address]
--- NOTE | 2020-09-23 17:59 | ER Document Report ---
ED General - General Chief Complaint: Post Surgical Pain Stated Complaint: WOUND CHECK/SOB/CHEST TIGHTNESS/FEVISH Time Seen by Provider: 09/23/20 12:35 Primary Care Provider: OSCAR KIM MD [Primary Care Provider] - Follow up as needed Mode of Arrival: Wheelchair Information source: Patient Notes: 24-year-old woman presenting to the emergency department with a history of laparoscopic CORNER BLOCK CUTTER procedure performed last week. She now complains of a pain and discomfort in the right lower quadrant laparoscopic site. She also notes that there is some redness around the site and that the Dermabond was to be coming off. She denies fevers, chills, nausea or vomiting. TRAVEL OUTSIDE OF THE [place] IN LAST 30 DAYS: No - Related Data Allergies/Adverse Reactions: latex Allergy (Verified 09/20/20 15:16) Hives sulfamethoxazole [From Septra] Allergy (Verified 09/20/20 15:16) Hives trimethoprim [From Julra] Allergy (Verified 09/20/20 15:16) Hives ibuprofen Adverse Reaction (Verified 09/20/20 15:17) DEHYDRATION Penicillins Adverse Reaction (Verified 09/20/20 15:16) SEVERE NAUSEA Home Medications: anxiety,depression, adhd meds, melatonin, claritin Past Medical History - General Information source: Patient - Social History Smoking Status: Never Smoker Frequency of alcohol use: None Drug Abuse: None Family History: Other - adopted - Past Medical History Cardiac Medical History: Reports: Hx Hypercholesterolemia Denies: Hx Coronary Artery Disease, Hx Heart Attack, Hx Hypertension Pulmonary Medical History: Reports: Hx Asthma Denies: Hx Bronchitis, Hx COPD, Hx Pneumonia Neurological Medical History: Denies: Hx Cerebrovascular Accident, Hx Seizures Endocrine Medical History: Reports: Hx Diabetes Mellitus Type 2 Renal/ Medical History: Denies: Hx Peritoneal Dialysis Musculoskeletal Medical History: Denies Hx Arthritis, Reports Hx Musculoskeletal Trauma Psychiatric Medical History: Reports: Hx Attention Deficit Hyperactivity Disorder, Hx Depression Traumatic Medical History: Reports: Hx Fractures - arm Past Surgical History: Reports: Hx Cholecystectomy, Hx Gynecologic Surgery - Immunizations Immunizations up to date: Yes Hx Diphtheria, Pertussis, Tetanus Vaccination: Yes Review of Systems - Review of Systems Notes: Constitutional: Negative for fever. HENT: Negative for sore throat. Eyes: Negative for visual changes. Cardiovascular: Negative for chest pain. Respiratory: Negative for shortness of breath. Gastrointestinal: See HPI Genitourinary: Negative for dysuria. Musculoskeletal: Negative for back pain. Skin: Negative for rash. Neurological: Negative for headaches, weakness or numbness. 10 point ROS negative except as marked above and in HPI. Physical Exam - Vital signs Vitals: Temp Pulse Resp BP Pulse Ox 98.3 F 79 20 112/78 99 09/23/20 12:37 09/23/20 12:37 09/23/20 12:37 09/23/20 12:37 09/23/20 12:37 - Notes Notes: PHYSICAL EXAMINATION: Physical Exam: General: Well-nourished well-developed in no acute distress HEENT: NC/AT, pupils equal round and reactive to light, MM moist,nares clear, oropharynx clear, airway patent Neck: supple, no adenopathy, no masses. Good range of motion Lungs: clear, no wheezing, no rales no rhonchi CVS: Regular rate and rhythm no murmur gallop or rub Abdomen: Soft, active, tenderness in the right lower quadrant trocar site mild erythema, no drainage Ext: No edema, clubbing or cyanosis. Neuro: Alert and responsive, moving all 4 extremities on command, cranial nerves intact, no focal findings Skin: Intact no open lesions, no rash PSYCH: Normal mood, normal affect. Course - Re-evaluation Re-evalutation: 09/23/20 17:57 Patient was sent for CT scan of the abdomen and pelvis with IV contrast. There is no intra-abdominal abscess or signs of fluid collection related to her procedure. I have reviewed this finding with the patient and she is going to be treated with cephalexin orally and follow-up with the LEARNING AND DEVELOPMENT ADMINISTRATOR. The patient is in agreement with this plan. 09/23/20 18:10 I have contacted the LEARNING AND DEVELOPMENT ADMINISTRATOR on-call Dr. Adan Rice, he states that the patient can be follow-up in the office, she could call for an appointment tomorrow. I have relayed that information to the patient. - Vital Signs Vital signs: Temp Pulse Resp BP Pulse Ox 98.3 F 79 20 112/78 99 09/23/20 12:37 09/23/20 12:37 09/23/20 12:37 09/23/20 12:37 09/23/20 12:37 - Laboratory Result Diagrams: 09/23/20 12:55 11/01/20 12:55 Laboratory results interpreted by me: 09/23/20 09/23/20 09/23/20 12:55 12:55 14:00 Hct 35.8 L AST 208 H ALT 156 H Alkaline Phosphatase 138 H Urine Protein 100 H Urine Blood LARGE H Urine Urobilinogen 2.0 H Ur Leukocyte Esterase TRACE H 09/23/20 18:04 I have reviewed laboratory data and used this information for the treatment decisions regarding the patient. - Diagnostic Test Radiology reviewed: Image reviewed, Reports reviewed Radiology results interpreted by me: 09/23/20 17:59 Abdomen/Pelvis CT 09/23/20 15:26 IMPRESSION: Trace free fluid in the pelvis. This is within normal limits for physiologic fluid or may be reactive secondary to recent procedure? . No acute abnormality. Discharge - Discharge Clinical Impression: Wound infection after surgery Condition: Good Disposition: HOME, SELF-CARE Instructions: Wound Infection ([facility]) Additional Instructions: You were seen in the emergency department today with an area on your abdomen that you were concerned about related to your surgery. We believe that there is an early infection beginning and you are being given antibiotics to treat it. Please follow-up with the LEARNING AND DEVELOPMENT ADMINISTRATOR in your office tomorrow. You may call in the morning to schedule a time to be seen. Please take the medications as prescribed, cephalexin HOME CARE INSTRUCTIONS & INFORMATION: Thank you for choosing us for your medical needs. We hope you're satisfied with the care you received. After you leave, you must properly care for your problem and, at the same time, observe its progress. Any condition can change. Some illnesses can change rapidly over hours or days. If your condition worsens, return to the Emergency Department or see your physician promptly. ABOUT YOUR X-RAYS AND EKG'S: If you had an EKG or X-rays taken, they have been read by the Emergency Physician. The X-rays and EKG's will also be read by a R adiologist or Pipe Out Worker within 24 hours. If discrepancies are noted, you will be notified by telephone. Please be certain the ED has a correct telephone number & address where you can be reached. Also, realize that some fractures or abnormalities do not show up on initial X-rays. If your symptoms continue, see your physician. ABOUT YOUR LABORATORY TEST: If you had laboratory tests, the results have been reviewed by the Emergency Physician. Some test results (for example cultures) may not be available for several days. You will be contacted if any test result shows you need additional treatment. Please be certain the ED has a correct telephone number and address where you can be reached. ABOUT YOUR MEDICATIONS: You will receive instructions on how to take your medicine on the prescription label you receive. Additional information may be provided by the Pharmacy. If you have questions afterwards, call the ED for clarification or further instructions. Some prescribed medications may cause drowsiness. Do not perform tasks such as driving a car or operating machinery without consulting your Pharmacist. If you feel you need a refill of pain medication, your condition will need re-evaluation. Please do not call for a refill of any medication. ABOUT YOUR SIGNATURE: Signature of this document acknowledges to followin. Understanding that you received emergency treatment and that you may be released before al medical problems are known or treated. Please be certain the ED has a correct phone number & address where you can be reached. 2. Acknowledgement that you will arrange for follow-up care as recommended. 3. Authorization for the Emergency Physician to provide information to your follow-up Physician in order to maximize your care. AT ANY TIME, IF YOUR SYMPTOMS CHANGE SIGNIFICANTLY OR WORSEN OR YOU DEVELOP NEW SYMPTOMS, RETURN TO THE EMERGENCY DEPARTMENT IMMEDIATELY FOR RE-EVALUATION. OUR GOAL IS TO PROVIDE EXCELLENT MEDICAL CARE! WE HOPE THAT WE HAVE MET YOUR EXPECTATIONS DURING YOUR EMERGENCY DEPARTMENT VISIT AND THAT YOU FEEL YOU HAVE RECEIVED EXCELLENT CARE! Prescriptions: Cephalexin Monohydrate [Keflex 500 mg Capsule] 500 mg PO Q8 10 Days #30 capsule Referrals: MYRIAM HERNANDEZ MD [ACTIVE STAFF] - Follow up as needed
[2020-09-23] MEDS ORDERED: CEPHALEXIN 500 MG CAPSULE PO ONE (18:03)
[2020-09-23 18:39] VITALS: BP 114/66
== END 2020-09-23 18:39 | disposition home or self-care (01) ==
LOC: ER 12:07
DX: T81.49XA Infection following a procedure, other surgical site, initial encounter (principal); B99.9 Unspecified infectious disease; Y83.8 Other surgical procedures as the cause of abnormal reaction of the patient, or of later complication, without mention of misadventure at the time of the procedure; R10.31 Right lower quadrant pain; J45.909 Unspecified asthma, uncomplicated; E11.9 Type 2 diabetes mellitus without complications; F32.9 Major depressive disorder, single episode, unspecified; F90.9 Attention-deficit hyperactivity disorder, unspecified type; Z79.899 Other long term (current) drug therapy; Z91.040 Latex allergy status; Z88.1 Allergy status to other antibiotic agents
CPT/HCPCS: 36415; 74177; 80053; 81001; 85025; 87086; 93005; 93010; 99285